=== PATIENT | female | born 1935 | race Caucasian/White ===

== ENCOUNTER 2017-04-14 13:11 | Emergency (ER) | payer MEDICARE ==
[~2017-04-14] VITALS: Ht 162.5 cm; Wt 68.0 kg
[~2017-04-14 13:11] MED LIST: CARBAMAZEPINE200 M2 PO; CRESTOR20 MG PO; DOXYCYCLINE100 M3 PO; EVISTA60 MG PO; FLAGYL500 MG PO; LISINOPRIL HCTZ1 TA1 PO; LISINOPRIL40 MG PO; PREDNISONE20 MG PO; PROMETH W/ DEX480 ML PO; ROBITUSSIN AC 110 ML PO; TOPROL XL25 MG PO; TRIAMTERENE & H1 CA1 PO; [UNRECOGNIZED DRUG - OTHER] PO
[2017-04-14 14:34] LABS: BASO % 0.6 % (0.0-1.0); EOS # 0.1 10*3/uL (0.0-0.4); EOS % 1.8 % (1.0-4.0); HEMATOCRIT 32.4 % (37.0-47.0); HEMOGLOBIN 11.3 g/dl (12.0-16.0); LYMPH # 1.7 10*3/uL (1.3-4.4); MEAN CELL VOLUME 91.3 fl (81.0-99.0); MEAN CORPUSCULAR HGB 31.8 pg (27.0-31.0); MEAN CORPUSCULAR HGB CONC 34.9 g/dl (33.0-37.0); MEAN PLATELET VOLUME 8.1 fl (9.6-12.3); MONO # 0.4 10*3/uL (0.1-1.0); MONO % 6.1 % (3.0-9.0); NEUT # 4.2 10*3/uL (2.3-7.9); PLATELET COUNT AUTOMATED 273 10*3/uL (130-400); RED BLOOD COUNT 3.55 10*6/uL (4.10-5.10); RED CELL DISTRI WIDTH 11.9 % (0-14.5); WHITE BLOOD COUNT 6.5 10*3/uL (4.8-10.8)
[2017-04-14 14:49] LABS: ALBUMIN 3.7 gm/dl (3.1-4.5); ALKALINE PHOSPHATASE 87 U/L (45-117); BUN 14 mg/dl (7-24); CHLORIDE 100 mmol/L (98-107); CREATININE 0.61 mg/dL (0.55-1.02); POTASSIUM 4.3 mmol/L (3.5-5.1); SGOT/AST 15 IU/L (3-35); SGPT/ALT 21 U/L (12-78); SODIUM 135 mmol/L (136-145); TOTAL PROTEIN 6.9 gm/dL (6.4-8.2); URIC ACID 3.5 mg/dL (2.6-6.0)
[2017-04-14] MEDS ORDERED: NORCO 10-325 T1 EACH PO (16:29)
== END 2017-04-14 16:37 | disposition home or self-care (01) ==
LOC: ED 13:11
PROVIDERS: Emergency Medicine
DX: M25.561 Pain in right knee (principal); R60.0 Localized edema; Z79.899 Other long term (current) drug therapy; Z90.710 Acquired absence of both cervix and uterus; Z98.890 Other specified postprocedural states

== ENCOUNTER 2018-01-10 13:30 | Emergency (ER) | payer MEDICARE ==
[~2018-01-10] VITALS: Ht 162.5 cm; Wt 70.3 kg
--- NOTE | ~2018-01-10 | EKG ---
[place], [place] ELECTROCARDIOGRAM REPORT NAME: VERENICE MAR UNIT #: [id number] ROOM: DOCTOR: EPIPHANY DRAFT REPORT BIRTHDATE: [birth year] [facility] Test Date: 2018-01-10 Test Time: 14:26:29 Pat Name: VERENICE MAR Department: ER Room: 3 Gender: F [employer] Food [employer]sembler: EKG.[place] : 1935 Requested By: TIFFANY NESS Order Number: [id number] Reading MD: Grzegorz Davila MD Measurements Intervals [place] Rate: 70 P: 56 RI: 174 QRS: 10 QRSD: 96 T: 28 QT: 398 QTc: 430 Interpretive Statements Sinus rhythm Probable left ventricular hypertrophy Inferior infarct, old Baseline wander in lead(s) V1 Electronically Signed On 01-11-2018 8:43:33 PDT by Grzegorz Davila MD CM:EKGRPT:ELECTROCARDIOGRAM REPORT [id number] TIFFANY NESS MD EPIPHBRONWYN DRAFT REPORT TIFFANY NESS MD
[~2018-01-10 13:30] MED LIST changes: +CRESTOR40 M1 PO; +NORCO 10-325 T1 EACH PO; +NORVASC5 MG PO; +TRIAMTERENE & H1 CAP PO
[2018-01-10 14:21] LABS: BILIRUBIN NEGATIVE (NEGATIVE); BLOOD TRACE-LYSED (NEGATIVE); CLARITY CLEAR (CLEAR); COLOR YELLOW (YELLOW); GLUCOSE NEGATIVE (NEGATIVE); KETONE NEGATIVE (NEGATIVE); LEUKO ESTERASE NEGATIVE (NEGATIVE); NITRITE NEGATIVE (NEGATIVE); UROBILINOGEN 0.2 E.U./dl (0.2-1.0)
[2018-01-10 14:28] LABS: BUN 13 mg/dl (7-24); CHLORIDE 99 mmol/L (98-107); CREATININE 0.61 mg/dL (0.55-1.02); POTASSIUM 3.8 mmol/L (3.5-5.1); SODIUM 133 mmol/L (136-145)
[2018-01-10 14:30] LABS: TROPONIN I < 0.015 ng/ml (<0.045)
[2018-01-10 14:32] LABS: BACTERIA TRACE; WBC 0-2 wbc/hpf (0-5)
[2018-02-23] MEDS ORDERED: ATIVAN0.5 MG PO (09:13)
[2018-02-23] MEDS ORDERED: NORVASC10 MG PO (09:13)
[2018-02-23] MEDS ORDERED: APRESOLINE25 MG PO (12:46)
[2018-02-24] MEDS ORDERED: Lopressor25 MG PO (12:42)
[2018-02-24] MEDS ORDERED: OMEPRAZOLE D/R20 MG PO (12:43)
[2018-02-24] MEDS ORDERED: PROZAC20 MG PO (12:44)
[2018-02-24] MEDS ORDERED: HYDR25T PO (12:46)
[2018-02-26] MEDS ORDERED: NORVASC10 MG PO (13:50)
[2018-02-26] MEDS ORDERED: APRESOLINE25 MG PO (13:50)
[2018-02-26] MEDS ORDERED: MECLIZINE HCL25 M2 PO (13:50)
== END 2018-01-10 15:35 | disposition home or self-care (01) ==
LOC: ED 13:30
PROVIDERS: Emergency Medicine
DX: I10 Essential (primary) hypertension (principal); M25.552 Pain in left hip; E03.9 Hypothyroidism, unspecified; E78.5 Hyperlipidemia, unspecified; Z79.899 Other long term (current) drug therapy

== ENCOUNTER 2019-12-31 12:39 | Observation (INO) | payer MEDICARE ==
[~2019-12-31] VITALS: Ht 162.6 cm; Wt 74.5 kg
[2019-12-31] VITALS (7 sets, daily range): BP systolic 116–173; BP diastolic 60–67
[~2019-12-31 12:39] MED LIST changes: +APRESOLINE25 MG PO; +ASPIRIN CHEWABL81 MG PO; +ATIVAN0.5 MG PO; +HYDR25T PO; +LOPRESSOR50 M1 PO; +MECLIZINE HCL25 M2 PO; +NORVASC10 MG PO; +OMEPRAZOLE D/R20 MG PO; +PROZAC20 MG PO
[2019-12-31 13:28] LABS: BASO % 0.7 % (0.0-1.0); EOS # 0.2 10*3/uL (0.0-0.4); EOS % 3.5 % (1.0-4.0); HEMATOCRIT 34.5 % (37.0-47.0); LYMPH # 1.7 10*3/uL (1.3-4.4); LYMPH % 30.2 % (27.0-41.0); MEAN CELL VOLUME 92.5 fl (81.0-99.0); MEAN CORPUSCULAR HGB 31.6 pg (27.0-31.0); MEAN CORPUSCULAR HGB CONC 34.2 g/dl (33.0-37.0); MEAN PLATELET VOLUME 8.3 fl (9.6-12.3); MONO # 0.5 10*3/uL (0.1-1.0); MONO % 9.9 % (3.0-9.0); NEUT % 54.6 % (47.0-73.0); PLATELET COUNT AUTOMATED 249 10*3/uL (130-400); RED BLOOD COUNT 3.73 10*6/uL (4.10-5.10); WHITE BLOOD COUNT 5.5 10*3/uL (4.8-10.8)
[2019-12-31 13:41] LABS: ACT PARTIAL THROMBO TIME 24.1 SECONDS (20.0-32.1)
[2019-12-31 13:51] LABS: ALBUMIN 3.5 gm/dl (3.1-4.5); ALKALINE PHOSPHATASE 104 U/L (45-117); BUN 14 mg/dl (7-24); CHLORIDE 102 mmol/L (98-107); CREATININE 0.85 mg/dL (0.55-1.02); POTASSIUM 4.9 mmol/L (3.5-5.1); SGOT/AST 20 IU/L (3-35); SGPT/ALT 24 U/L (12-78); SODIUM 135 mmol/L (136-145); TOTAL PROTEIN 6.7 gm/dL (6.4-8.2)
[2019-12-31 13:54] LABS: BILIRUBIN NEGATIVE; BLOOD NEGATIVE (NEGATIVE); CLARITY CLOUDY (CLEAR); COLOR YELLOW (YELLOW); GLUCOSE NEGATIVE; KETONE TRACE; LEUKO ESTERASE TRACE (NEGATIVE); NITRITE NEGATIVE (NEGATIVE); PH 8.5 (4.5-8.0); SPECIFIC GRAVITY 1.025 (1.001-1.030)
[2019-12-31 13:55] LABS: TROPONIN I < 0.015 ng/ml (<0.045)
[2019-12-31 14:17] LABS: BACTERIA 1+; FINE GRANULAR CAST TNTC; HYALINE CAST TNTC; MUCOUS 2+
[2020-01-01] VITALS: BP 182/80; BP 192/90
[2020-01-01 02:00] VITALS: BP 162/70
[2020-01-01 06:08] VITALS: BP 162/70
[2020-01-01 06:55] LABS: BASO % 0.6 % (0.0-1.0); EOS # 0.2 10*3/uL (0.0-0.4); EOS % 2.6 % (1.0-4.0); HEMATOCRIT 36.3 % (37.0-47.0); LYMPH # 2.2 10*3/uL (1.3-4.4); MEAN CELL VOLUME 93.6 fl (81.0-99.0); MEAN CORPUSCULAR HGB 31.2 pg (27.0-31.0); MEAN CORPUSCULAR HGB CONC 33.3 g/dl (33.0-37.0); MEAN PLATELET VOLUME 8.6 fl (9.6-12.3); MONO # 0.6 10*3/uL (0.1-1.0); MONO % 8.7 % (3.0-9.0); NEUT # 3.6 10*3/uL (2.3-7.9); NEUT % 54.5 % (47.0-73.0); PLATELET COUNT AUTOMATED 260 10*3/uL (130-400); RED BLOOD COUNT 3.88 10*6/uL (4.10-5.10); RED CELL DISTRI WIDTH 12.1 % (0-14.5); WHITE BLOOD COUNT 6.5 10*3/uL (4.8-10.8)
[2020-01-01 06:57] LABS: ALBUMIN 3.4 gm/dl (3.1-4.5); BUN 11 mg/dl (7-24); CHLORIDE 103 mmol/L (98-107); POTASSIUM 4.6 mmol/L (3.5-5.1); SODIUM 135 mmol/L (136-145)
[2020-01-01 07:00] LABS: ACT PARTIAL THROMBO TIME 26.1 SECONDS (20.0-32.1)
[2020-01-01 07:04] LABS: ALKALINE PHOSPHATASE 97 U/L (45-117); CHOLESTEROL 142 mg/dL (<200); CREATININE 0.63 mg/dL (0.55-1.02); FREE T4 0.71 ng/dl (0.76-1.46); HDL CHOLESTEROL 55 mg/dl (40-60); LDL CHOLESTEROL 55 mg/dL (9-159); SGOT/AST 19 IU/L (3-35); SGPT/ALT 24 U/L (12-78); TOTAL PROTEIN 6.7 gm/dL (6.4-8.2); TRIGLYCERIDES 161 mg/dl (<150); VLDL CHOLESTEROL 32 mg/dL (6-40)
[2020-01-01 07:51] LABS: VITAMIN D, 25-HYDROXY 41.3 ng/mL (30-100)
[2020-01-01 08:00] VITALS: BP 160/72
== END 2020-01-01 14:03 | disposition home or self-care (01) ==
LOC: ED 12:39 → EDHOLD 14:03 → 4E 14:03
PROVIDERS: Emergency Medicine; Social Worker Clinical; ADMIT Internal Medicine; ATTEND Internal Medicine
DX: R55 Syncope and collapse (principal); R42 Dizziness and giddiness; R00.1 Bradycardia, unspecified; R51 Headache; E87.1 Hypo-osmolality and hyponatremia; D64.9 Anemia, unspecified; E03.9 Hypothyroidism, unspecified; I25.10 Atherosclerotic heart disease of native coronary artery without angina pectoris; C44.91 Basal cell carcinoma of skin, unspecified; E78.5 Hyperlipidemia, unspecified; E66.3 Overweight

== ENCOUNTER → 2021-12-17 | Outpatient (CLI) | payer MEDICARE | END | disposition home or self-care (01) | LOC: RESCLI 08:56 | PROVIDERS: ATTEND Internal Medicine | DX: I11.9 Hypertensive heart disease without heart failure (principal); I25.10 Atherosclerotic heart disease of native coronary artery without angina pectoris; E78.5 Hyperlipidemia, unspecified; E03.9 Hypothyroidism, unspecified; R53.83 Other fatigue; M85.80 Other specified disorders of bone density and structure, unspecified site; G50.0 Trigeminal neuralgia; Z79.899 Other long term (current) drug therapy; Z90.710 Acquired absence of both cervix and uterus; Z79.01 Long term (current) use of anticoagulants ==

== ENCOUNTER 2022-01-25 21:58 | Emergency (ER) | payer MEDICARE ==
[~2022-01-25] VITALS: Wt 69.9 kg
[2022-01-25 22:57] LABS: BASO % 0.4 % (0.0-1.0); EOS # 0.1 10*3/uL (0.0-0.4); EOS % 0.9 % (1.0-4.0); HEMATOCRIT 37.5 % (37.0-47.0); LYMPH # 1.6 10*3/uL (1.3-4.4); LYMPH % 23.6 % (27.0-41.0); MEAN CELL VOLUME 92.8 fl (81.0-99.0); MEAN CORPUSCULAR HGB 31.9 pg (27.0-31.0); MEAN CORPUSCULAR HGB CONC 34.4 g/dl (33.0-37.0); MONO # 0.4 10*3/uL (0.1-1.0); MONO % 6.3 % (3.0-9.0); NEUT # 4.7 10*3/uL (2.3-7.9); NEUT % 68.4 % (47.0-73.0); PLATELET COUNT AUTOMATED 280 10*3/uL (130-400); RED BLOOD COUNT 4.04 10*6/uL (4.10-5.10); RED CELL DISTRI WIDTH 11.9 % (0-14.5); WHITE BLOOD COUNT 6.9 10*3/uL (4.8-10.8)
[2022-01-25 23:23] LABS: ALKALINE PHOSPHATASE 98 U/L (45-117); BUN 15 mg/dl (7-24); CHLORIDE 101 mmol/L (98-107); CREATININE 0.67 mg/dL (0.55-1.02); POTASSIUM 4.5 mmol/L (3.5-5.1); SGOT/AST 13 IU/L (3-35); SGPT/ALT 21 U/L (12-78); SODIUM 133 mmol/L (136-145); TOTAL PROTEIN 7.2 gm/dL (6.4-8.2)
== END 2022-01-25 23:54 | disposition home or self-care (01) ==
LOC: ED 21:58
PROVIDERS: Emergency Medicine
DX: I10 Essential (primary) hypertension (principal); R42 Dizziness and giddiness; Z79.899 Other long term (current) drug therapy

== ENCOUNTER 2022-01-31 09:01 | Emergency (ER) | payer MEDICARE ==
[~2022-01-31] VITALS: Ht 162.5 cm; Wt 68.0 kg
[2022-01-31 11:08] LABS: BASO # 0.1 10*3/uL (0.0-0.1); BASO % 0.7 % (0.0-1.0); EOS # 0.1 10*3/uL (0.0-0.4); EOS % 0.7 % (1.0-4.0); HEMATOCRIT 37.7 % (37.0-47.0); LYMPH # 2.3 10*3/uL (1.3-4.4); LYMPH % 33.7 % (27.0-41.0); MEAN CELL VOLUME 93.1 fl (81.0-99.0); MEAN CORPUSCULAR HGB 32.3 pg (27.0-31.0); MEAN CORPUSCULAR HGB CONC 34.7 g/dl (33.0-37.0); MONO # 0.6 10*3/uL (0.1-1.0); MONO % 9.1 % (3.0-9.0); NEUT # 3.8 10*3/uL (2.3-7.9); NEUT % 55.4 % (47.0-73.0); PLATELET COUNT AUTOMATED 288 10*3/uL (130-400); RED BLOOD COUNT 4.05 10*6/uL (4.10-5.10); RED CELL DISTRI WIDTH 11.9 % (0-14.5); WHITE BLOOD COUNT 6.8 10*3/uL (4.8-10.8)
[2022-01-31 11:31] LABS: ALKALINE PHOSPHATASE 89 U/L (45-117); BUN 13 mg/dl (7-24); CHLORIDE 98 mmol/L (98-107); CREATININE 0.65 mg/dL (0.55-1.02); POTASSIUM 4.4 mmol/L (3.5-5.1); SGOT/AST 17 IU/L (3-35); SGPT/ALT 22 U/L (12-78); SODIUM 131 mmol/L (136-145); TOTAL PROTEIN 7.4 gm/dL (6.4-8.2)
== END 2022-01-31 14:29 | disposition home or self-care (01) ==
LOC: ED 09:01
PROVIDERS: Nurse Practitioner Family
DX: E87.1 Hypo-osmolality and hyponatremia (principal); R53.1 Weakness; Z90.710 Acquired absence of both cervix and uterus; Z98.890 Other specified postprocedural states; Z79.899 Other long term (current) drug therapy

== ENCOUNTER → 2022-02-03 | Outpatient (CLI) | payer MEDICARE ==
[2022-02-03 13:00] LABS: BASO # 0.1 10*3/uL (0.0-0.1); BASO % 0.8 % (0.0-1.0); EOS # 0.1 10*3/uL (0.0-0.4); EOS % 2.2 % (1.0-4.0); HEMATOCRIT 35.4 % (37.0-47.0); LYMPH # 2.1 10*3/uL (1.3-4.4); LYMPH % 34.5 % (27.0-41.0); MEAN CELL VOLUME 92.9 fl (81.0-99.0); MEAN CORPUSCULAR HGB 31.8 pg (27.0-31.0); MEAN CORPUSCULAR HGB CONC 34.2 g/dl (33.0-37.0); MEAN PLATELET VOLUME 8.1 fl (9.6-12.3); MONO # 0.6 10*3/uL (0.1-1.0); MONO % 9.3 % (3.0-9.0); NEUT # 3.2 10*3/uL (2.3-7.9); NEUT % 52.7 % (47.0-73.0); PLATELET COUNT AUTOMATED 274 10*3/uL (130-400); RED BLOOD COUNT 3.81 10*6/uL (4.10-5.10); RED CELL DISTRI WIDTH 12.1 % (0-14.5)
[2022-02-03 13:36] LABS: ALKALINE PHOSPHATASE 86 U/L (45-117); BUN 12 mg/dl (7-24); CHLORIDE 100 mmol/L (98-107); POTASSIUM 4.4 mmol/L (3.5-5.1); SGOT/AST 10 IU/L (3-35); SGPT/ALT 18 U/L (12-78); SODIUM 134 mmol/L (136-145); TOTAL PROTEIN 6.8 gm/dL (6.4-8.2)
== END | disposition home or self-care (01) ==
LOC: LAB 12:10
PROVIDERS: ATTEND Nurse Practitioner Family
DX: E87.1 Hypo-osmolality and hyponatremia (principal)

== ENCOUNTER → 2022-03-18 | Outpatient (CLI) | payer MEDICARE ==
[2022-03-18 10:48] LABS: BUN 16 mg/dl (7-24); CHLORIDE 98 mmol/L (98-107); CREATININE 0.59 mg/dL (0.55-1.02); POTASSIUM 4.3 mmol/L (3.5-5.1); SODIUM 131 mmol/L (136-145)
== END | disposition home or self-care (01) ==
LOC: LAB 09:48
PROVIDERS: ATTEND Family Medicine
DX: E87.1 Hypo-osmolality and hyponatremia (principal)

== ENCOUNTER → 2022-06-17 | Outpatient (CLI) | payer MEDICARE | END | disposition home or self-care (01) | LOC: RESCLI 02:41 | PROVIDERS: ATTEND Internal Medicine | DX: I10 Essential (primary) hypertension (principal); E78.5 Hyperlipidemia, unspecified; E03.9 Hypothyroidism, unspecified; M85.80 Other specified disorders of bone density and structure, unspecified site; G50.0 Trigeminal neuralgia; R53.83 Other fatigue; Z91.048 Other nonmedicinal substance allergy status; Z90.710 Acquired absence of both cervix and uterus; Z98.890 Other specified postprocedural states; Z82.49 Family history of ischemic heart disease and other diseases of the circulatory system; Z79.82 Long term (current) use of aspirin; Z79.899 Other long term (current) drug therapy ==

== ENCOUNTER → 2023-06-02 | Outpatient (CLI) | payer OTHER | END | disposition home or self-care (01) | LOC: RESCLI 08:54 | PROVIDERS: ATTEND Student in an Organized Health Care Education/Training Program | DX: I25.10 Atherosclerotic heart disease of native coronary artery without angina pectoris (principal); I10 Essential (primary) hypertension; E78.5 Hyperlipidemia, unspecified; E03.9 Hypothyroidism, unspecified; R53.83 Other fatigue; M85.80 Other specified disorders of bone density and structure, unspecified site; G50.0 Trigeminal neuralgia; M19.90 Unspecified osteoarthritis, unspecified site; Z82.49 Family history of ischemic heart disease and other diseases of the circulatory system; Z98.890 Other specified postprocedural states; Z91.048 Other nonmedicinal substance allergy status; Z79.82 Long term (current) use of aspirin; Z79.899 Other long term (current) drug therapy ==

== ENCOUNTER 2023-08-10 10:23 | Emergency (ER) | payer MEDICARE, OTHER ==
[~2023-08-10] VITALS: Ht 165.1 cm; Wt 72.6 kg
[2023-08-10] MEDS ORDERED: ASPIRIN81 M1 PO (10:31)
[2023-08-10] MEDS ORDERED: HYDROCHLOROTH12.5 M2 PO (10:32)
[2023-08-10] MEDS ORDERED: IMDUR SA30 MG PO (10:32)
[2023-08-10] MEDS ORDERED: VITAMIN B-121000 MC2 PO (10:33)
[2023-08-10] MEDS ORDERED: ZINC50 M4 PO (10:34)
[2023-08-10] MEDS ORDERED: VITAMIN C500 M6 PO (10:34)
[2023-08-10] MEDS ORDERED: Cyclobenzaprine Hydrochlorid 10 MG TAB PO ONE (11:40)
[2023-08-10 11:46] LABS: BUN 12 mg/dl (9-23); CHLORIDE 102 mmol/L (98-107); POTASSIUM 4.4 mmol/L (3.4-5.1)
[2023-08-10] MEDS ORDERED: Ketorolac Tromethamine 15 MG/ML VIAL IM ONE (11:55)
[2023-08-10] MEDS ORDERED: CYCLOBENZAPRINE10 MG PO (12:01)
== END 2023-08-10 12:33 | disposition home or self-care (01) ==
LOC: ED 10:23
PROVIDERS: Internal Medicine
DX: M62.838 Other muscle spasm (principal); M25.512 Pain in left shoulder; Z91.048 Other nonmedicinal substance allergy status; Z79.899 Other long term (current) drug therapy; Z79.82 Long term (current) use of aspirin; Z90.711 Acquired absence of uterus with remaining cervical stump; Z98.890 Other specified postprocedural states

== ENCOUNTER → 2025-01-27 | Outpatient (CLI) | payer MEDICARE, OTHER ==
[~2025-01-27] MED LIST changes: +'CLONIDINE0.1 MG PO; +ADULT LOW DOSE81 MG PO; +AMLODIPINE BESYL5 MG PO; +ASPIRIN81 M1 PO; +CLONIDINE1 EACH T; +CYCLOBENZAPRINE10 MG PO; +HYDROCHLOROTH12.5 M2 PO; +IMDUR SA30 MG PO; +LISINOPRIL20 MG PO; +VITAMIN B-121000 MC2 PO; +VITAMIN C500 M4 PO; +VITAMIN C500 M6 PO; +ZINC50 M4 PO
== END | disposition home or self-care (01) ==
LOC: LAB 08:28
PROVIDERS: ATTEND Internal Medicine Nephrology
DX: E87.1 Hypo-osmolality and hyponatremia (principal); E55.9 Vitamin D deficiency, unspecified